=== PATIENT | male | born 1955 | race Caucasian/White ===

== ENCOUNTER 2017-01-12 18:36 | Emergency (ER) | payer OTHER ==
[2017-01-12 19:07] LABS: BASO # 0.1 10_X3_uL (0.0-0.1); BASO % 0.8 % (0.2-1.2); EOS # 0.1 10_X3_uL (0.0-0.5); EOS % 2.3 % (0.8-7.0); GRAN # 3.5 10_X3_uL (1.8-5.4); GRAN % 56.9 % (34.0-67.9); HEMATOCRIT 42.7 % (40-51); HEMOGLOBIN 14.7 g/dL (13.7-17.5); MEAN CORPUSCULAR HEMOGLOBIN 31.7 pg (27.0-33.0); MEAN CORPUSCULAR HGB CONC 34.4 g/dL (32.0-36.0); MEAN PLATELET VOLUME 9.2 fl (7.5-11.5); MONO # 0.5 10_X3_uL (0.3-0.8); PLATELET COUNT 223 x10_3/uL (163-337); RED BLOOD COUNT 4.64 x10_6/uL (4.6-6.1); RED CELL DISTRIBUTION WIDTH 14.1 % (11.6-14.4); WHITE BLOOD COUNT 6.2 x10_3/uL (4.2-9.1)
[2017-01-12 19:25] LABS: ALBUMIN 3.8 gm/dL (3.4-5.0); BILIRUBIN,TOTAL 0.17 mg/dL (0.0-1.0); CALCIUM 8.3 mg/dL (8.7-10.7); CREATININE 1.5 mg/dL (0.6-1.3); POTASSIUM 3.8 mmol/L (3.5-5.1); TOTAL PROTEIN 6.3 gm/dL (6.4-8.2)
== END 2017-01-12 22:40 | disposition home or self-care (01) ==
LOC: ER 18:36
PROVIDERS: Emergency Medicine
DX: F10.229 Alcohol dependence with intoxication, unspecified (principal)
CPT/HCPCS: 36415; 80053; 85025; 96360; 99070; 99284-25; G0480